=== PATIENT | female | born 1990 | race Hispanic/Latino ===

== ENCOUNTER 2018-06-03 08:21 | Emergency (ER) | payer MEDICAID, OTHER ==
[~2018-06-03 08:21] MED LIST: DOCU-116 PO; IBUP-1673 PO
== END 2018-06-03 08:49 | disposition home or self-care (01) ==
LOC: EDH 08:21
DX: L23.9 Allergic contact dermatitis, unspecified cause (principal)

== ENCOUNTER 2018-06-14 11:02 | Emergency (ER) | payer SELFPAY ==
[2018-06-14] MEDS ORDERED: DiphenhydrAMINE HCL 50 MG/ML VIAL ONE (11:16)
[2018-06-14] MEDS ORDERED: DEXAMETHASONE SOD PHOSPHATE 10MG/ML 1ML VIAL ONE (11:16)
[2018-06-14] MEDS ORDERED: FAMOTIDINE 20MG TAB 20 MG TAB ONE (11:16)
== END 2018-06-14 11:46 | disposition home or self-care (01) ==
LOC: EDH 11:02
DX: T78.49XA Other allergy, initial encounter (principal); X58.XXXA Exposure to other specified factors, initial encounter
CPT/HCPCS: 96372 ×2; 99284; J1100; J1200